=== PATIENT | male | born 1980 | race Caucasian/White ===

== ENCOUNTER 2017-12-27 17:15 | Emergency (ER) | payer OTHER ==
[~2017-12-27] VITALS: Ht 188 cm; Wt 100.0 kg
[2017-12-27 17:32] VITALS: BP 164/100
--- NOTE | 2017-12-27 17:38 | NUR ---
PT AMBULATES TO BED 7
--- NOTE | 2017-12-27 17:40 | NUR ---
37/M BIB BROTHER C/O LT ELBOW PAIN, MIGUELINA KNEE PAIN & ABRASION WOUND S/P FALL WHILE POWER WALKING; JUST CAME BACK FROM [place].DENIES LOC. AAOX4 WITH EVEN AND STEADY GAIT; LUNGS CLEAR BL; HR EVEN AND REGULAR; PT DENIES ANY FEVER, CP, SOB, OR COUGH AT THIS TIME; PATIENT STATES PAIN OF 8/10 AT THIS TIME. PATIENT POSITIONED FOR COMFORT; HOB ELEVATED; BEDRAILS UP X2; BED DOWN. ER MD MADE AWARE OF PT STATUS.
--- NOTE | 2017-12-27 19:13 | NUR ---
Pt report given to SOLEDAD LUQUE. Transfer of care at this time.
--- NOTE | 2017-12-27 19:37 | NUR ---
Dr. Onofre evaluating patient at bedside.
[2017-12-27] MEDS ORDERED: BACITRACIN OINT 500 UNITS/GM PKT TP ONE (20:00)
[2017-12-27] MEDS ORDERED: IBUPROFEN 600 MG TAB PO ONE (20:00)
[2017-12-27 20:20] VITALS: BP 123/72
== END 2017-12-27 20:20 | disposition home or self-care (01) ==
LOC: MED 17:15
DX: S52.125A Nondisplaced fracture of head of left radius, initial encounter for closed fracture (principal); W01.0XXA Fall on same level from slipping, tripping and stumbling without subsequent striking against object, initial encounter; Y93.89 Activity, other specified; Y92.89 Other specified places as the place of occurrence of the external cause; Y99.8 Other external cause status
CPT/HCPCS: 73080; 99284